=== PATIENT | female | born 1965 | race Caucasian/White ===

== ENCOUNTER 2016-10-27 18:37 | Outpatient (CLI) | payer OTHER ==
--- NOTE | 2016-10-27 21:16 | DIAGNOSTIC IMAGING REPORT ---
PROCEDURE: XR LUMBAR SPINE 2 OR 3 VIEWS INDICATION: MIDLINE LOW BACK PAIN TECHNIQUE: Three views. COMPARISON: None. FINDINGS: Degenerative change of the lower lumbar facet joints. There are small degenerative osteophytes of the lower lumbar vertebral bodies. The rest of the osseous structures and disc spaces are normal. No evidence of an acute process or fracture. IMPRESSION: 1. Mild degenerative changes. 2. Otherwise negative lumbar spine.
--- NOTE | 2016-10-27 21:29 | DIAGNOSTIC IMAGING REPORT ---
PROCEDURE: XR CERVICAL SPINE 2 OR 3 VIEW INDICATION: MIDLINE LOW BACK PAIN TECHNIQUE: Three views. COMPARISON: None. FINDINGS: Marked multilevel degenerative changes of the cervical spine with marked disc space narrowing at C3-4, C5-6, and C6-7 associated anterior posterior osteophytes. There are marked degenerative changes of the facet joints. Findings are associated straightening and reversal of the upper cervical lordosis with mild dextroscoliosis. No evidence of an acute process or fracture. IMPRESSION: 1. Marked degenerative changes of the cervical spine. 2. Associated straightening and reversal of the upper cervical lordosis compatible with chronic degenerative changes or cervical spasm. 3. No evidence of acute process or fracture.
== END 2016-10-27 23:00 | disposition home or self-care (01) ==
LOC: XR SRH 18:37
DX: M51.36 Other intervertebral disc degeneration, lumbar region (principal); M50.323 Other cervical disc degeneration at C6-C7 level; M50.322 Other cervical disc degeneration at C5-C6 level; M50.31 Other cervical disc degeneration, high cervical region